=== PATIENT | female | born 1945 | race Caucasian/White ===

== ENCOUNTER 2021-10-14 09:11 | Day surgery (SDC) | payer MEDICARE ==
[~2021-10-14] VITALS: Ht 160 cm; Wt 81.1 kg
[~2021-10-14 09:11] MED LIST: BUPR150ER PO; GABA300 PO; LORA10ER PO; LOSARTAN-HCTZ1 EAC5 PO; METO25ER PO; Norco 10-325 T1 EACH PO; ROSU5 PO
[2021-10-14] MEDS ORDERED: CLEM1.34 (09:40)
== END 2021-10-14 10:37 | disposition home or self-care (01) ==
LOC: ORSCSDS 09:11
PROVIDERS: Ophthalmology
PROC: 08RJ3JZ Replacement of Right Lens with Synthetic Substitute, Percutaneous Approach (ICD-10-PCS; principal; 2021-10-14 10:00)
DX: H25.13 Age-related nuclear cataract, bilateral (principal); I10 Essential (primary) hypertension; F17.210 Nicotine dependence, cigarettes, uncomplicated; K21.9 Gastro-esophageal reflux disease without esophagitis; Z79.899 Other long term (current) drug therapy
CPT/HCPCS: J2001; J2250; J3010; J3301; J7040; V2632

== ENCOUNTER 2021-10-28 08:47 | Day surgery (SDC) | payer MEDICARE ==
[~2021-10-28] VITALS: Ht 160 cm; Wt 81.5 kg
[~2021-10-28 08:47] MED LIST changes: +CLEM1.34
[2021-10-28] MEDS ORDERED: IBU800 MG PO (09:03)
--- NOTE | 2021-10-28 09:10 | NUR ---
10/28/21 0910 Gilles Luis CALL LIGHT WITHIN REACH. TETRACAINE AT 0905 PLEDGETT AT 0908
== END 2021-10-28 10:35 | disposition home or self-care (01) ==
LOC: ORSCSDS 08:47
PROVIDERS: Ophthalmology
PROC: 08RK3JZ Replacement of Left Lens with Synthetic Substitute, Percutaneous Approach (ICD-10-PCS; principal; 2021-10-28 10:00)
DX: H25.12 Age-related nuclear cataract, left eye (principal); I10 Essential (primary) hypertension; E66.9 Obesity, unspecified; Z68.37 Body mass index [BMI] 37.0-37.9, adult; F17.210 Nicotine dependence, cigarettes, uncomplicated; Z79.899 Other long term (current) drug therapy
CPT/HCPCS: J2001; J2250; J3010; J3301; J7040; V2632

== ENCOUNTER → 2022-10-04 | Outpatient (CLI) | payer OTHER ==
[~2022-10-04] MED LIST changes: +IBU800 MG PO
[2022-10-04 18:57] LABS: Hematocrit 44.8 % (33.0-51.0); Hemoglobin 14.9 g/dL (11.5-16.0); Mean Corpuscular HGB 33.9 pg (26.0-34.0); Mean Corpuscular HGB Conc 33.3 g/dL (31.5-36.5); Mean Corpuscular Volume 102 fL (80-100); Mean Platelet Volume 10.4 fL (9.1-12.4); Platelet Count 221 K/mm3 (150-400); RDW Coefficient Variation 12.3 % (11.7-14.2); RDW Standard Deviation 46.9 fL (35.1-46.3); White Blood Cell Count 10.05 K/mm3 (4.00-11.30)
[2022-10-04 19:49] LABS: Albumin, Blood 3.5 g/dL (3.4-5.0); Bilirubin, Total 0.4 mg/dL (0.1-1.0); Bun/Creatinine Ratio 22.5 (12.0-20.0); Calcium, Blood 8.9 mg/dL (8.5-10.1); Creatinine, Blood 0.62 mg/dL (0.40-1.00); Globulin, Blood 3.6 g/dL (2.2-4.0); Potassium, Blood 4.2 mmol/L (3.5-5.5); Total Protein, Blood 7.1 g/dL (6.4-8.2)
[2022-10-04 19:56] LABS: BASOPHILS PERCENT MAN 1 % (0-2); EOSINOPHILS PERCENT MAN 5 % (0-6); LYMPHOCYTES % ATYPICAL MANUAL 1 % (0-0); LYMPHOCYTES ABSOLUTE MAN 2.71 K/mm3 (0.84-5.20); LYMPHOCYTES PERCENT MAN 26 % (21-46); MONOCYTES PERCENT MAN 5 % (4-13); NEUTROPHILS ABSOLUTE MAN 6.23 K/mm3 (1.96-9.15); SEG NEUTROPHILS PERCENT MAN 62 % (41-73); TOTAL CELLS COUNTED 100
== END | disposition home or self-care (01) ==
LOC: LAB SHORT 18:00 → LAB 18:00
PROVIDERS: Family Medicine
DX: J06.9 Acute upper respiratory infection, unspecified (principal); R05.9 Cough, unspecified; Z72.0 Tobacco use
CPT/HCPCS: 80053; 85025

== ENCOUNTER → 2023-02-18 | Outpatient (CLI) | payer OTHER ==
[2023-02-20 17:25] LABS: Adenovirus F 40/41 Not Detected (NOT DETECT); Astrovirus Not Detected (NOT DETECT); Campylobacter Sp Not Detected (NOT DETECT); Cryptosporidium Not Detected (NOT DETECT); Cyclospora Cayetanensis Not Detected (NOT DETECT); E. Coli O157 Not Detected (NOT DETECT); Entamoeba Histolytica Not Detected (NOT DETECT); Enteroaggregative E. coli-EAEC Not Detected (NOT DETECT); Enteropathogenic E. coli-EPEC Not Detected (NOT DETECT); Enterotoxigenic E. coli-ETEC Not Detected (NOT DETECT); Giardia Lamblia Not Detected (NOT DETECT); Norovirus GI/GII Detected (NOT DETECT); Plesiomonas Shigelloides Not Detected (NOT DETECT); Rotavirus A Not Detected (NOT DETECT); Salmonella Sp Not Detected (NOT DETECT); Sapovirus Not Detected (NOT DETECT); Shiga Toxin-prod E. coli-STEC Not Detected (NOT DETECT); Shigella/Enteroin E. coli-EIEC Not Detected (NOT DETECT); Vibrio Cholerae Not Detected (NOT DETECT); Vibrio Sp Not Detected (NOT DETECT); Yersinia Enterocolitica Not Detected (NOT DETECT)
== END ==
LOC: LAB SHORT 13:00 → LAB 13:00
PROVIDERS: Internal Medicine Gastroenterology
DX: R19.7 Diarrhea, unspecified (principal)
CPT/HCPCS: 87507

== ENCOUNTER → 2023-04-13 | Outpatient (CLI) | payer OTHER ==
[2023-04-13 19:23] LABS: Hemoglobin 15.9 g/dL (11.5-16.0); Mean Corpuscular HGB 33.4 pg (26.0-34.0); Mean Corpuscular HGB Conc 33.8 g/dL (31.5-36.5); Mean Corpuscular Volume 99 fL (80-100); Mean Platelet Volume 10.8 fL (9.1-12.4); Platelet Count 215 K/mm3 (150-400); RDW Coefficient Variation 12.8 % (11.7-14.2); RDW Standard Deviation 46.8 fL (35.1-46.3); Red Blood Cell Count 4.76 M/mm3 (3.80-5.20); White Blood Cell Count 10.51 K/mm3 (4.00-11.30)
[2023-04-13 20:54] LABS: BASOPHILS PERCENT MAN 0 % (0-2); EOSINOPHILS PERCENT MAN 1 % (0-6); LYMPHOCYTES % ATYPICAL MANUAL 1 % (0-0); LYMPHOCYTES ABSOLUTE MAN 3.99 K/mm3 (0.84-5.20); LYMPHOCYTES PERCENT MAN 37 % (21-46); MONOCYTES ABSOLUTE MAN 0.42 K/mm3 (0.16-1.47); MONOCYTES PERCENT MAN 4 % (4-13); NEUTROPHILS ABSOLUTE MAN 5.99 K/mm3 (1.96-9.15); SEG NEUTROPHILS PERCENT MAN 57 % (41-73); TOTAL CELLS COUNTED 100
== END ==
LOC: LAB SHORT 18:16 → LAB 18:16
PROVIDERS: Nurse Practitioner Family
DX: I10 Essential (primary) hypertension (principal)
CPT/HCPCS: 85025; 85060

== ENCOUNTER → 2023-07-31 | Outpatient (CLI) | payer OTHER ==
[2023-07-31 19:29] LABS: Hematocrit 43.8 % (33.0-51.0); Hemoglobin 14.5 g/dL (11.5-16.0); Mean Corpuscular HGB 34.1 pg (26.0-34.0); Mean Corpuscular HGB Conc 33.1 g/dL (31.5-36.5); Mean Corpuscular Volume 103 fL (80-100); Mean Platelet Volume 11.1 fL (9.1-12.4); Platelet Count 216 K/mm3 (150-400); RDW Coefficient Variation 12.6 % (11.7-14.2); RDW Standard Deviation 47.7 fL (35.1-46.3); Red Blood Cell Count 4.25 M/mm3 (3.80-5.20); White Blood Cell Count 11.16 K/mm3 (4.00-11.30)
[2023-07-31 20:18] LABS: CHOL/HDL RATIO 2.6; Cholesterol 201 mg/dL (50-200); HDL Cholesterol 77 mg/dL (>39); LDL/HDL RATIO 1.4; Low Density Lipoprotein Chol 105 mg/dL (0-110); Triglycerides 94 mg/dL (30-160); Very Low Density Lipoprot Chol 18 mg/dL (6-32)
[2023-07-31 20:30] LABS: BASOPHILS PERCENT MAN 0 % (0-2); EOSINOPHILS ABSOLUTE MAN 0.22 K/mm3 (0.00-0.68); EOSINOPHILS PERCENT MAN 2 % (0-6); LYMPHOCYTES ABSOLUTE MAN 4.24 K/mm3 (0.84-5.20); LYMPHOCYTES PERCENT MAN 38 % (21-46); MONOCYTES ABSOLUTE MAN 0.44 K/mm3 (0.16-1.47); MONOCYTES PERCENT MAN 4 % (4-13); NEUTROPHILS ABSOLUTE MAN 6.24 K/mm3 (1.96-9.15); SEG NEUTROPHILS PERCENT MAN 56 % (41-73); TOTAL CELLS COUNTED 100
[2023-08-02 09:11] LABS: A/G RATIO 2.6 (1.2-2.2); BILIRUBIN, TOTAL 0.3 mg/dL (0.0-1.2); CALCIUM, SERUM 9.2 mg/dL (8.7-10.3); CREATININE, SERUM 0.6 mg/dL (0.57-1.00); GLOBULIN, TOTAL 1.8 g/dL (1.5-4.5); PROTEIN, TOTAL, SERUM 6.4 g/dL (6.0-8.5)
== END | disposition home or self-care (01) ==
LOC: LAB 15:14 → LAB SHORT 15:14
PROVIDERS: Family Medicine
DX: E66.3 Overweight (principal); E78.5 Hyperlipidemia, unspecified; R26.9 Unspecified abnormalities of gait and mobility; R79.9 Abnormal finding of blood chemistry, unspecified
CPT/HCPCS: 80053; 80061; 84443; 85025; 85060

== ENCOUNTER 2023-12-27 07:01 | Inpatient (IN) | payer OTHER ==
[~2023-12-27] VITALS: Ht 160 cm; Wt 67.1 kg
[2023-12-27 09:01] LABS: Influenza A, PCR NEGATIVE (NEGATIVE); Influenza B, PCR NEGATIVE (NEGATIVE); Resp Syncytial Virus, PCR NEGATIVE (NEGATIVE); SARS-Cov-2 (COVID-19) PCR, MMC NEGATIVE (NEGATIVE)
[2023-12-27] MEDS ORDERED: Acetaminophen 500 MG Tab PO ONE (09:30)
[2023-12-27] MEDS ORDERED: Ipratropium/Albuterol SulF 2.5-0.5MG/3 ML Amp INH ONE (09:30)
[2023-12-27] MEDS ORDERED: Azithromycin 500 MG in NS 250 ML IV ONE (09:45)
[2023-12-27] MEDS ORDERED: MethylPREDNISolone Sod Succ 125 MG Vial IV ONE (09:45)
[2023-12-27] MEDS ORDERED: HYDROCODONE-AC1 EA19 PO (10:06)
[2023-12-27] MEDS ORDERED: HYDROCODONE-AC1 EAC7 PO (10:07)
[2023-12-27] MEDS ORDERED: Norvasc5 MG PO (10:08)
[2023-12-27] MEDS ORDERED: GABA300 PO ×2 (10:10→15:36)
[2023-12-27 11:05] LABS: BASOPHILS ABSOLUTE AUTO 0.04 K/mm3 (0.00-0.23); BASOPHILS PERCENT AUTO 0 % (0-2); EOSINOPHILS ABSOLUTE AUTO 0.03 K/mm3 (0.00-0.68); EOSINOPHILS PERCENT AUTO 0 % (0-6); Hematocrit 45.1 % (33.0-51.0); Hemoglobin 15.5 g/dL (11.5-16.0); IMMATURE GRAN ABSOLUTE AUTO 0.03 K/mm3 (0.00-0.10); IMMATURE GRAN PERCENT AUTO 0 % (0-1); LYMPHOCYTES PERCENT AUTO 28 % (21-46); MONOCYTES ABSOLUTE AUTO 0.53 K/mm3 (0.16-1.47); MONOCYTES PERCENT AUTO 6 % (4-13); Mean Corpuscular HGB 34.1 pg (26.0-34.0); Mean Corpuscular HGB Conc 34.4 g/dL (31.5-36.5); Mean Corpuscular Volume 99 fL (80-100); Mean Platelet Volume 9.6 fL (9.1-12.4); NEUTROPHILS ABSOLUTE AUTO 6.18 K/mm3 (1.96-9.15); NEUTROPHILS PERCENT AUTO 66 % (41-73); Platelet Count 168 K/mm3 (150-400); RDW Coefficient Variation 12.6 % (11.7-14.2); RDW Standard Deviation 46.6 fL (35.1-46.3); Red Blood Cell Count 4.54 M/mm3 (3.80-5.20); White Blood Cell Count 9.41 K/mm3 (4.00-11.30)
[2023-12-27 11:22] LABS: Albumin, Blood 3.6 g/dL (3.4-5.0); Albumin/Globulin Ratio 0.9 (0.8-1.8); Bilirubin, Total 0.5 mg/dL (0.1-1.0); Bun/Creatinine Ratio 32.5 (12.0-20.0); Calcium, Blood 8.7 mg/dL (8.5-10.1); Creatinine, Blood 0.52 mg/dL (0.40-1.00); Globulin, Blood 3.8 g/dL (2.2-4.0); Potassium, Blood 3.8 mmol/L (3.5-5.5); Total Protein, Blood 7.4 g/dL (6.4-8.2)
[2023-12-27] MEDS ORDERED: Acetaminophen 325 MG TABLET PO PRN (13:55)
[2023-12-27] MEDS ORDERED: Ipratropium/Albuterol SulF 2.5-0.5MG/3 ML Amp INH PRN (14:30)
[2023-12-27] MEDS ORDERED: AmLODIPine Besylate 5 MG Tab PO SCH (15:00)
[2023-12-27] MEDS ORDERED: Metoprolol Succinate 25 MG TABCR PO SCH (15:00)
[2023-12-27] MEDS ORDERED: Nicoderm Cq1 EAC1 TOP (15:38)
[2023-12-27 15:46] VITALS: BP 166/90
[2023-12-27] MEDS ORDERED: HYDROcodone 10-APAP 325 TAB PO ONE (16:20)
[2023-12-27 19:20] VITALS: BP 169/82
[2023-12-27] MEDS ORDERED: HYDROcodone 10-APAP 325 TAB PO SCH (21:00)
[2023-12-27] MEDS ORDERED: Gabapentin 300 MG Cap PO SCH (21:00)
[2023-12-27] MEDS ORDERED: MethylPREDNISolone Sod Succ 40 MG VIAL IV SCH (21:00)
[2023-12-28 03:36] VITALS: BP 149/78
[2023-12-28] MEDS ORDERED: Guaifenesin/Dextromethorphan Syrup 5 ML UDC PO PRN (04:15)
--- NOTE | 2023-12-28 04:16 | NUR ---
SHIFT SUMMARY PT. UP IN BED, A FEMALE VISITOR BY THE BEDSIDE WHO KNOWS PT'S HEALTH HISTORY. PT. SITTING UPRIGHT,HOB ELEVATED AND ON O2 VIA NC@3L. LS WHEEZING ON UL'S PER AUSCULTATION, AND DIMINSHED LL'S. MOIST COUGH, UNPRODUCTIVE. PT.C/O HOSPITAL ER AND MEDICAL FLOOR CARE FOR HER: C/O AWAITING TO GET TYLENOL FOR SIX HOURS AT THE ER, AND THEN FROM [phone]@ MEDICAL FLOOR PER PT'S REPORT, TO THIS NURSE AND RN TAN. PT'S AFFECT IS ANGRY AND IRRITABLE, PT. IS DEMANDING 10/325MG NORCO, AND VISITOR CHECKING THE PILL PRINT TO MAKE SURE IT IS A 10MG INSTEAD OF 5MG TAB. PT'S DEMEANOR IS DEMANDING, THIS WIRTER AND RN IN THE ROOM TO PASS HS MEDS AND ANALGESICS IN ORDER TO DEFUSE/WITNESS THE SITUATION. PER PT STATEMENT"I WILL NEVER COME HERE AGAIN IF I DON'T GET THE TYLENOL NOW!!". THE FEMALE VISITOR AGREES WITH THE PT, AND ADDS INFO TO THEIR COMPLAINTS. QUICK SHIFT ASSESSMENT COMPLETED BY THIS NURSE, WHILE LESTER REAGAN ADMINISTERING IV MED ORDERED AT 2100. PT.C/O 8/10WORST H/A @FRONTAL LOBE, (SEE EMAR FOR MORE INFO ABOUT PRN MEDS). NEW ORDER FOR COUGH/ PER PT REQUEST: ROBITUSSIN DM PO 10ML Q6PRN. PT. LISTENING AND COMPLAINING ABOUT THE WAY THIS NURSE AND A STAFF MEMBER COMMUNICATE VIA [employer]. THIS NURSE EXPLAINED THAT THERE WAS NO INFO ABOUT THE PATIENT, NOR A ROOM NUMBER, NO IDENTIFIERS HEARD OVER THE [employer] WHILE IN THE PT.S ROOM. PT. REPLIES" I WAS A PSYCHOLOGY STUDENT ONCE SO I KNOW." NO ACUTE EVENTS/DISTRESS NOTED OR REPORTED DURING THIS SHIFT. BED AT THE LOWEST POSITION, CALL LIGHT IN REACH. WILL HANDOFF TO THE INCOMING SHIFT NURSE.
[2023-12-28 05:10] LABS: BASOPHILS ABSOLUTE AUTO 0.02 K/mm3 (0.00-0.23); BASOPHILS PERCENT AUTO 0 % (0-2); EOSINOPHILS PERCENT AUTO 0 % (0-6); Hematocrit 45.3 % (33.0-51.0); Hemoglobin 15.2 g/dL (11.5-16.0); IMMATURE GRAN ABSOLUTE AUTO 0.04 K/mm3 (0.00-0.10); IMMATURE GRAN PERCENT AUTO 0 % (0-1); LYMPHOCYTES ABSOLUTE AUTO 3.29 K/mm3 (0.84-5.20); LYMPHOCYTES PERCENT AUTO 34 % (21-46); MONOCYTES ABSOLUTE AUTO 0.13 K/mm3 (0.16-1.47); MONOCYTES PERCENT AUTO 1 % (4-13); Mean Corpuscular HGB 33.5 pg (26.0-34.0); Mean Corpuscular HGB Conc 33.6 g/dL (31.5-36.5); Mean Corpuscular Volume 100 fL (80-100); Mean Platelet Volume 9.8 fL (9.1-12.4); NEUTROPHILS ABSOLUTE AUTO 6.23 K/mm3 (1.96-9.15); NEUTROPHILS PERCENT AUTO 64 % (41-73); Platelet Count 178 K/mm3 (150-400); RDW Coefficient Variation 12.1 % (11.7-14.2); RDW Standard Deviation 45.1 fL (35.1-46.3); Red Blood Cell Count 4.54 M/mm3 (3.80-5.20); White Blood Cell Count 9.71 K/mm3 (4.00-11.30)
[2023-12-28 05:39] LABS: Albumin, Blood 3.5 g/dL (3.4-5.0); Albumin/Globulin Ratio 0.9 (0.8-1.8); Bilirubin, Total 0.4 mg/dL (0.1-1.0); Bun/Creatinine Ratio 34.4 (12.0-20.0); Calcium, Blood 8.8 mg/dL (8.5-10.1); Creatinine, Blood 0.49 mg/dL (0.40-1.00); Globulin, Blood 3.8 g/dL (2.2-4.0); Potassium, Blood 4.3 mmol/L (3.5-5.5); Total Protein, Blood 7.3 g/dL (6.4-8.2)
[2023-12-28 07:14] VITALS: BP 170/70
[2023-12-28] MEDS ORDERED: Ipratropium/Albuterol SulF 2.5-0.5MG/3 ML Amp INH SCH ×3 (07:40→15:00)
[2023-12-28] MEDS ORDERED: Nicotine 14 MG PATCH TOP SCH (09:00)
[2023-12-28] MEDS ORDERED: Losartan Potassium 50 MG Tab PO SCH (09:00)
[2023-12-28] MEDS ORDERED: HydroCHLOROthiazide 25 mg Tab PO SCH (09:00)
[2023-12-28] MEDS ORDERED: HydrALAZINE HCl 20 MG / ML 1ML Vial IV PRN (09:00)
[2023-12-28] MEDS ORDERED: Gabapentin 300 MG Cap PO SCH (09:00)
[2023-12-28] MEDS ORDERED: Enoxaparin 40 MG/0.4 ML SYR SC SCH (09:00)
[2023-12-28] MEDS ORDERED: Azithromycin 250 MG Tab PO SCH (09:00)
[2023-12-28 15:10] VITALS: BP 137/58
[2023-12-28] MEDS ORDERED: MethylPREDNISolone Sod Succ 40 MG VIAL IV SCH (16:00)
--- NOTE | 2023-12-28 18:25 | NUR ---
REPORT RECEIVED VERIFED PT DOING BETTER TODAY BUT EXPRESSED WANTING TO STAY ANOTHER NIGHT, O2 IS STILL NEEDED, O2 EVAL SEEMED SUCCESSFUL BUT PT WHILE AMBULATING IS AT 91-93 ON ROOM AIR BUT ONCE SHE IS IN BED O2 DROPS TO THE MID 80S, I INFORMED THE MD AND ADDITIONAL TREATMENTS ORDERED. PT COUGH IS DEEP AND UNPRODUCTIVE. COUGH MEDS GIVEN
[2023-12-28 20:01] VITALS: BP 140/56
[2023-12-29 03:55] VITALS: BP 104/65
[2023-12-29 06:17] LABS: Bun/Creatinine Ratio 43.6 (12.0-20.0); Calcium, Blood 8.9 mg/dL (8.5-10.1); Creatinine, Blood 0.6 mg/dL (0.40-1.00); Potassium, Blood 4.2 mmol/L (3.5-5.5)
--- NOTE | 2023-12-29 07:14 | NUR ---
Patient alert and oriented x3, VSS, tolerating 2L via nasal cannula. Patient inconsistently compliant with care, impulsively ambulating to room and removing oxygen at times, refusing education.
[2023-12-29 07:45] VITALS: BP 166/70
[2023-12-29] MEDS ORDERED: Q-Tussin100 MG/5 M PO (11:55)
[2023-12-29] MEDS ORDERED: PRED20 PO (11:55)
[2023-12-29] MEDS ORDERED: ALBU90OI INH (11:56)
[2023-12-29] MEDS ORDERED: FLUTICASONE-SA1 EAC1 INH (11:56)
[2023-12-29] MEDS ORDERED: HYDROcodone 5-APAP 325 TAB PO ONE (12:35)
--- NOTE | 2023-12-29 13:52 | NUR ---
PT DISCHARGE REVIEWED WITH PT AND S/O PER HER VERBAL AUTH, IV PULLED BY AIDE. NO TELE. PT VERVALIZED UNDERSTANDING MEDS AND INSTRUCT. PT DRESSED SELF. WILL BE WHEELED TODOOR BY AIDE.
== END 2023-12-29 14:14 | disposition home or self-care (01) | DRG 189 ==
LOC: ER 07:01 → MEDS 07:02 → ENPENDDIS 12-29 11:16 → MEDS 12-29 14:14
PROVIDERS: Family Medicine Adult Medicine; Physician Assistant; ADMIT Internal Medicine
DX: J96.01 Acute respiratory failure with hypoxia (principal); I10 Essential (primary) hypertension; F17.200 Nicotine dependence, unspecified, uncomplicated; M19.90 Unspecified osteoarthritis, unspecified site; G83.24 Monoplegia of upper limb affecting left nondominant side; K52.832 Lymphocytic colitis; G14 Postpolio syndrome; E78.00 Pure hypercholesterolemia, unspecified; H26.9 Unspecified cataract; Z88.7 Allergy status to serum and vaccine; Z79.1 Long term (current) use of non-steroidal anti-inflammatories (NSAID); Z79.891 Long term (current) use of opiate analgesic; Z85.42 Personal history of malignant neoplasm of other parts of uterus
CPT/HCPCS: 0241U; 36415; 71046; 80048; 80053; 85025; 93005; 93010; 94640; 94664; 94761; 94762; A9270; J0456; J1650; J2919; J7050

== ENCOUNTER → 2024-01-24 | Outpatient (CLI) | payer OTHER ==
[~2024-01-24] MED LIST changes: +ALBU90OI INH; +FLUTICASONE-SA1 EAC1 INH; +HYDROCODONE-AC1 EA19 PO; +HYDROCODONE-AC1 EAC7 PO; +Nicoderm Cq1 EAC1 TOP; +Norvasc5 MG PO; +PRED20 PO; +Q-Tussin100 MG/5 M PO
== END ==
LOC: LAB 18:36 → LAB SHORT 18:36
DX: R30.0 Dysuria (principal)
CPT/HCPCS: 87077; 87086; 87186

== ENCOUNTER 2024-02-29 16:39 | Emergency (ER) | payer OTHER ==
[~2024-02-29] VITALS: Ht 162.6 cm; Wt 71.2 kg
[2024-02-29 16:47] VITALS: BP 124/89
[2024-02-29] MEDS ORDERED: CEPH500 PO ×2 (16:55→16:56)
[2024-02-29] MEDS ORDERED: ONDA4ODT MM (16:55)
== END 2024-02-29 16:56 | disposition home or self-care (01) ==
LOC: ER 16:39
DX: L03.115 Cellulitis of right lower limb (principal); I10 Essential (primary) hypertension; E78.00 Pure hypercholesterolemia, unspecified; Z79.52 Long term (current) use of systemic steroids; Z79.51 Long term (current) use of inhaled steroids; Z79.899 Other long term (current) drug therapy; Z88.7 Allergy status to serum and vaccine
CPT/HCPCS: 99283

== ENCOUNTER 2024-05-31 08:50 | Day surgery (SDC) | payer OTHER ==
[2024-05-31] VITALS (14 sets, daily range): BP systolic 120–149; BP diastolic 56–78
[~2024-05-31] VITALS: Ht 160 cm; Wt 71.0 kg
[~2024-05-31 08:50] MED LIST changes: +ALEVAZOL56.7 G1 TOP; +CENTRUM SILVER1 EAC2 PO; +CEPH500 PO; +MELA3; +ONDA4ODT MM; +VITAMIN A; +Vitamin B Comple1 EA PO
[2024-05-31] MEDS ORDERED: Lactated Ringer's 1,000 ML IV SCH (09:20)
[2024-05-31] MEDS ORDERED: Indocyanine Green 25 MG Vial IV SCH (09:20)
--- NOTE | 2024-05-31 10:37 | NUR ---
Ambulatory in Day Surgery ABLE TO STAND ON SCALE INDEPENDENTLY. History, Chart, Medications and Allergies reviewed before start of procedure. 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 PT NEEDS HELP WITH CHANGING DUE TO LEFT ARM PARALYSIS AND RIGHT SHOULDER PAIN. BELONGINGS PLACED UNDER GURN IN PT BELONGING BAG.
[2024-05-31] MEDS ORDERED: Ondansetron HCl 2 MG / ML 2ML Vial ONE ×2 (10:44→15:01)
[2024-05-31] MEDS ORDERED: Rocuronium Bromide 10 MG/ML 5ML Injection IV ONE (10:44)
[2024-05-31] MEDS ORDERED: Sugammadex Sodium 200 MG/2ML SDV (100 MG/ML) ONE (10:44)
[2024-05-31] MEDS ORDERED: propofoL 20 ML IV ONE (10:44)
[2024-05-31] MEDS ORDERED: Dexamethasone Sod Phos 10 MG/ML 1ML VIAL ONE (10:44)
[2024-05-31] MEDS ORDERED: FentaNYL Citrate 50 MCG/ML 2 ML Injection ONE ×2 (10:44→14:42)
[2024-05-31] MEDS ORDERED: Bupivacaine 0.5% HCl 5 MG/ML 30MLVIAL ONE (11:44)
[2024-05-31] MEDS ORDERED: ePHEDrine Sulfate 50 MG/ML 1ML Injection ONE (12:21)
--- NOTE | 2024-05-31 13:01 | NUR ---
05/31/24 1301 Jayda Woody NO INTRAOPERATIVE ANTIBIOTICS ORDERED.
[2024-05-31] MEDS ORDERED: HYDROcodone 5-APAP 325 TAB PO PRN (14:45)
[2024-05-31] MEDS ORDERED: Metoclopramide HCl 5MG / ML 2ML Vial ONE (15:01)
--- NOTE | 2024-05-31 17:30 | NUR ---
Discharge instructions reviewed with patient. Patient verbalizes understanding. Copy given to patient to take home. BELONGINGS INCLUDING CELL PHONE RETURNED TO PT. Discharged via wheelchair to private car for ride home.
== END 2024-05-31 17:31 | disposition home or self-care (01) ==
LOC: ORSCMMR 08:50 → ORD 11:00 → ORSCMMR 17:31
PROVIDERS: Surgery
PROC: 0FT44ZZ Resection of Gallbladder, Percutaneous Endoscopic Approach (ICD-10-PCS; principal; 2024-05-31 11:00)
PROC: BF532Z0 Other Imaging of Gallbladder and Bile Ducts using Fluorescing Agent, Intraoperative (ICD-10-PCS; principal; 2024-05-31 11:00)
DX: K80.40 Calculus of bile duct with cholecystitis, unspecified, without obstruction (principal); R10.11 Right upper quadrant pain; I12.9 Hypertensive chronic kidney disease with stage 1 through stage 4 chronic kidney disease, or unspecified chronic kidney disease; N18.30 Chronic kidney disease, stage 3 unspecified; E78.5 Hyperlipidemia, unspecified; J44.9 Chronic obstructive pulmonary disease, unspecified; F17.210 Nicotine dependence, cigarettes, uncomplicated; Z79.899 Other long term (current) drug therapy
CPT/HCPCS: 88304; A9270; J1100; J2405; J2704; J2765; J3010; J7120

== ENCOUNTER 2024-06-05 14:53 | Inpatient (IN) | payer OTHER ==
[~2024-06-05] VITALS: Ht 160 cm; Wt 64.4 kg
[2024-06-05 15:54] LABS: BASOPHILS ABSOLUTE AUTO 0.05 K/mm3 (0.00-0.23); BASOPHILS PERCENT AUTO 0 % (0-2); EOSINOPHILS ABSOLUTE AUTO 0.17 K/mm3 (0.00-0.68); EOSINOPHILS PERCENT AUTO 1 % (0-6); Hematocrit 44.1 % (33.0-51.0); Hemoglobin 14.7 g/dL (11.5-16.0); IMMATURE GRAN ABSOLUTE AUTO 0.06 K/mm3 (0.00-0.10); IMMATURE GRAN PERCENT AUTO 0 % (0-1); LYMPHOCYTES ABSOLUTE AUTO 4.04 K/mm3 (0.84-5.20); LYMPHOCYTES PERCENT AUTO 28 % (21-46); MONOCYTES ABSOLUTE AUTO 0.64 K/mm3 (0.16-1.47); MONOCYTES PERCENT AUTO 5 % (4-13); Mean Corpuscular HGB 33.4 pg (26.0-34.0); Mean Corpuscular HGB Conc 33.3 g/dL (31.5-36.5); Mean Corpuscular Volume 100 fL (80-100); Mean Platelet Volume 9.8 fL (9.1-12.4); NEUTROPHILS ABSOLUTE AUTO 9.37 K/mm3 (1.96-9.15); NEUTROPHILS PERCENT AUTO 65 % (41-73); Platelet Count 210 K/mm3 (150-400); RDW Coefficient Variation 12.7 % (11.7-14.2); RDW Standard Deviation 47.7 fL (35.1-46.3); White Blood Cell Count 14.33 K/mm3 (4.00-11.30)
[2024-06-05] MEDS ORDERED: HYDROmorphone HCl/Pf 1MG SYR IV ONE ×2 (16:15→20:35)
[2024-06-05] MEDS ORDERED: Ondansetron HCl 2 MG / ML 2ML Vial IV ONE (16:15)
[2024-06-05 16:17] LABS: Albumin, Blood 3.3 g/dL (3.4-5.0); Albumin/Globulin Ratio 0.9 (0.8-1.8); Bilirubin, Total 1.2 mg/dL (0.1-1.0); Bun/Creatinine Ratio 28.7 (12.0-20.0); Calcium, Blood 9.1 mg/dL (8.5-10.1); Creatinine, Blood 0.52 mg/dL (0.40-1.00); Globulin, Blood 3.7 g/dL (2.2-4.0); Potassium, Blood 4.6 mmol/L (3.5-5.5)
[2024-06-05] MEDS ORDERED: Polyethylene Glycol 3350 17 gm PO ONE (19:25)
[2024-06-05] MEDS ORDERED: Ampicillin Sod/Sulbactam Sod 3 GM in NS 100 ML IV ONE (20:50)
[2024-06-05] MEDS ORDERED: Ondansetron HCl 2 MG / ML 2ML Vial IV PRN (22:10)
[2024-06-05] MEDS ORDERED: FLU VACC TS2024-25(6MOS UP)/PF 45 MCG/0.5 ML SYRINGE IM ONE (22:10)
[2024-06-05] MEDS ORDERED: NS 1,000 ML IV SCH (22:10)
[2024-06-05] MEDS ORDERED: HYDROmorphone HCl/Pf 1MG SYR IV PRN (22:15)
[2024-06-05] MEDS ORDERED: Albuterol HFA200 ACT/6.7 GM INH INH PRN (22:25)
[2024-06-05] MEDS ORDERED: Piperacillin/Tazobactam Sod 4.5 GM in NS 100 ML IV SCH (22:30)
[2024-06-05] MEDS ORDERED: LOSA50 PO (22:48)
[2024-06-05] MEDS ORDERED: Docusate Sodium 100 MG Cap PO SCH (23:00)
[2024-06-06 00:03] VITALS: BP 124/76
[2024-06-06] MEDS ORDERED: HYDROmorphone HCl/Pf 1MG SYR IV PRN (03:20)
[2024-06-06 04:01] VITALS: BP 110/51
[2024-06-06 04:02] VITALS: BP 121/61
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
[2024-06-06 05:56] LABS: BASOPHILS ABSOLUTE AUTO 0.04 K/mm3 (0.00-0.23); BASOPHILS PERCENT AUTO 0 % (0-2); EOSINOPHILS ABSOLUTE AUTO 0.15 K/mm3 (0.00-0.68); EOSINOPHILS PERCENT AUTO 1 % (0-6); Hematocrit 42.6 % (33.0-51.0); Hemoglobin 14.4 g/dL (11.5-16.0); IMMATURE GRAN ABSOLUTE AUTO 0.04 K/mm3 (0.00-0.10); IMMATURE GRAN PERCENT AUTO 0 % (0-1); LYMPHOCYTES ABSOLUTE AUTO 4.65 K/mm3 (0.84-5.20); LYMPHOCYTES PERCENT AUTO 37 % (21-46); MONOCYTES ABSOLUTE AUTO 0.77 K/mm3 (0.16-1.47); MONOCYTES PERCENT AUTO 6 % (4-13); Mean Corpuscular HGB 33.6 pg (26.0-34.0); Mean Corpuscular HGB Conc 33.8 g/dL (31.5-36.5); Mean Corpuscular Volume 99 fL (80-100); Mean Platelet Volume 9.9 fL (9.1-12.4); NEUTROPHILS ABSOLUTE AUTO 6.95 K/mm3 (1.96-9.15); NEUTROPHILS PERCENT AUTO 55 % (41-73); Platelet Count 208 K/mm3 (150-400); RDW Coefficient Variation 12.7 % (11.7-14.2); RDW Standard Deviation 46.5 fL (35.1-46.3); Red Blood Cell Count 4.29 M/mm3 (3.80-5.20)
[2024-06-06 06:19] LABS: Albumin, Blood 3.1 g/dL (3.4-5.0); Albumin/Globulin Ratio 0.9 (0.8-1.8); Bilirubin, Total 1.2 mg/dL (0.1-1.0); Creatinine, Blood 0.69 mg/dL (0.40-1.00); Globulin, Blood 3.5 g/dL (2.2-4.0); Potassium, Blood 3.9 mmol/L (3.5-5.5); Total Protein, Blood 6.6 g/dL (6.4-8.2)
[2024-06-06 07:25] VITALS: BP 125/57
[2024-06-06] MEDS ORDERED: Gabapentin 300 MG Cap PO SCH (09:00)
[2024-06-06] MEDS ORDERED: Metoprolol Succinate 25 MG TABCR PO SCH (09:00)
--- NOTE | 2024-06-06 09:10 | NUR ---
DR RODRIGUEZ TO CHARGE STATION. OKAY FOR PT TO HAVE CLEAR LIQUIDS SHE IS CURRENTLY REQUESTEING A CUP OF HOT WATER. ORDER PLACED AND WATER GIVEN PER DR. RODRIGUEZ.
[2024-06-06] MEDS ORDERED: Metoclopramide HCl 5MG / ML 2ML Vial IV PRN (10:10)
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
[2024-06-06] MEDS ORDERED: Prochlorperazine Edisylate 10 mg Vial IM PRN (11:00)
[2024-06-06] MEDS ORDERED: Prochlorperazine Edisylate 10 mg Vial IV PRN (11:20)
[2024-06-06] MEDS ORDERED: Norco 10-325 T1 EACH PO (15:14)
[2024-06-06] MEDS ORDERED: ONDA4ODT MM (15:15)
[2024-06-06] MEDS ORDERED: GABA300 PO (15:16)
[2024-06-06 15:36] VITALS: BP 129/61
--- NOTE | 2024-06-06 17:36 | NUR ---
PATIENT ALERT AND ORIENTED X 4, VSS, RA. PT COMPLAINED OF ABDOMINAL AND SHOULDER PAIN, CONTROLLED WITH DILAUDED. PT NAUSEOUS AND VOMITED CLEAR YELLOW EMISIS, ZOFRAN AND REGLAN INEFFECTIVE, COMPAZINE EFFECTIVE. NS RUNNING AT 150, DIET ADVANCED TO CLEAR LIQUID DIET PER DR. RODRIGUEZ. PT STILL WAITING FOR BED AT ANOTHER FACILITY THAT CAN DO AN ERCP. PT CALLS APPROPRIATLY, EDUCATED ON ESBL AND CONTACT PRECAUTIONS.
[2024-06-06 20:56] VITALS: BP 119/54
[2024-06-07 02:13] VITALS: BP 130/70
--- NOTE | 2024-06-07 05:52 | NUR ---
SHIFT SUMMARY PATIENT IS ALERT AND ORIENTED. PATIENT HAS HAD NO ACUTE EVENTS THIS SHIFT. VITAL SIGNS REVIEWED. PATIENT HAS REPORTED PAIN AND NAUSEA THIS SHIFT AND MEDICATED PER EMAR. PATIENT HAS HAD NO SOB OR VOMITTING THIS SHIFT. BED IN LOCKED AND LOWEST POSITION. CALL LIGHT IN PLACE.
[2024-06-07 07:46] VITALS: BP 145/75
[2024-06-07 07:51] LABS: Albumin, Blood 2.7 g/dL (3.4-5.0); Albumin/Globulin Ratio 0.8 (0.8-1.8); Bilirubin, Direct 0.4 mg/dL (0.0-0.3); Bilirubin, Indirect 0.6 mg/dL (0.1-0.7); Globulin, Blood 3.2 g/dL (2.2-4.0); Total Protein, Blood 5.9 g/dL (6.4-8.2)
[2024-06-07 15:38] VITALS: BP 122/87
[2024-06-07] MEDS ORDERED: DOCU100 PO (16:34)
[2024-06-07] MEDS ORDERED: SUPER B-50 COM1 EACH PO (16:34)
[2024-06-07] MEDS ORDERED: PIPERACIL-TAZO4.5 G1 IV (16:35)
[2024-06-07 17:07] VITALS: BP 122/87
[2024-06-07] MEDS ORDERED: HYDROcodone 10-APAP 325 TAB PO ONE (19:00)
--- NOTE | 2024-06-07 19:14 | NUR ---
PT ALERT AND ORIENTED X4, VSS, RA, INDEPENDENT IN ROOM, PLEASANT. ZOSYN CONTINUED, PAIN CONTROLLED WITH PRN DILAUDED, NAUSEA CONTROLLED WITH PRN ZOFRAN. PT STATES THAT ABDOMINAL PAIN IS IMPROVING, BUT ERCP STILL NECESSARY. BED AVAILABLE TONIGHT IN [place] FOR PROCEDURE IN THE MORNING. [facility] TRANSPORT IS BEING ARRANGED FOR TONIGHT. PT RESTING COMFORTABLE IN ROOM AWAITING TRANSPORT. CALL LIGHT IN REACH, BED IN LOW POSITION.
[2024-06-07 19:48] VITALS: BP 145/68
[2024-06-07 20:30] VITALS: BP 122/87
== END 2024-06-07 21:35 | disposition short-term general hospital (02) | DRG 446 ==
LOC: ER 14:53 → MEDS 22:06
PROVIDERS: Nurse Practitioner Acute Care; Physician Assistant; Surgery; ADMIT Student in an Organized Health Care Education/Training Program
DX: K80.32 Calculus of bile duct with acute cholangitis without obstruction (principal); G14 Postpolio syndrome; K52.832 Lymphocytic colitis; J44.9 Chronic obstructive pulmonary disease, unspecified; H26.9 Unspecified cataract; M19.90 Unspecified osteoarthritis, unspecified site; F17.210 Nicotine dependence, cigarettes, uncomplicated; I12.9 Hypertensive chronic kidney disease with stage 1 through stage 4 chronic kidney disease, or unspecified chronic kidney disease; N18.30 Chronic kidney disease, stage 3 unspecified; E78.00 Pure hypercholesterolemia, unspecified; F10.21 Alcohol dependence, in remission; Z90.710 Acquired absence of both cervix and uterus; Z98.890 Other specified postprocedural states; Z98.51 Tubal ligation status; Z90.49 Acquired absence of other specified parts of digestive tract; Z88.7 Allergy status to serum and vaccine; Z79.891 Long term (current) use of opiate analgesic; Z79.899 Other long term (current) drug therapy
CPT/HCPCS: 36415; 74177; 74181; 80053; 80076; 83690; 83735; 85025; 94760; 96365-59; 96375; 96376; 99284-25; A9270; J0295; J0780; J1171; J2405; J2543; J2765; J7030; Q9967

== ENCOUNTER → 2024-12-31 | Outpatient (CLI) | payer OTHER ==
[~2024-12-31] MED LIST changes: +AMOX-CLAV 875-1 EAC5 PO; +ANORO ELLIPTA1 EAC1 INH; +AZIT500 PO; +BENZ100A PO; +DOCU100 PO; +ESTRADIOL42.5 GM TOP; +GUAI600T33 PO; +LOSARTAN POTAS100 M1 PO; +MELATONIN5 M1 PO; +MERIBIN5 MG PO; +NICO21TP TD; +PIPERACIL-TAZO4.5 G1 IV; +SUPER B-50 COM1 EACH PO
== END ==
LOC: LAB 16:16 → LAB SHORT 16:16
DX: R30.0 Dysuria (principal)
CPT/HCPCS: 87077; 87086; 87186

== ENCOUNTER → 2025-01-21 | Outpatient (CLI) | payer OTHER ==
[~2025-01-21] MED LIST changes: +BRUKINSA80 MG; +GABA800; +POTASSIUM
== END | disposition home or self-care (01) ==
LOC: LAB SHORT 19:07 → LAB 19:07
DX: R39.9 Unspecified symptoms and signs involving the genitourinary system (principal)
CPT/HCPCS: 87077; 87086; 87186

== ENCOUNTER 2025-01-22 06:46 | Day surgery (SDC) | payer OTHER ==
[~2025-01-22] VITALS: Ht 165.1 cm; Wt 68.4 kg
[~2025-01-22 06:46] MED LIST changes: -BRUKINSA80 MG; -GABA800; -POTASSIUM
[2025-01-22] MEDS ORDERED: BRUKINSA80 MG (07:22)
[2025-01-22] MEDS ORDERED: GABA800 (07:23)
[2025-01-22] MEDS ORDERED: POTASSIUM (07:25)
[2025-01-22 09:22] VITALS: BP 146/57
== END 2025-01-22 09:08 | disposition home or self-care (01) ==
LOC: ORSCSDS 06:46
PROVIDERS: Internal Medicine Gastroenterology
PROC: 0DBE8ZX Excision of Large Intestine, Via Natural or Artificial Opening Endoscopic, Diagnostic (ICD-10-PCS; principal; 2025-01-22 08:00)
DX: K52.832 Lymphocytic colitis (principal); K57.30 Diverticulosis of large intestine without perforation or abscess without bleeding; E78.00 Pure hypercholesterolemia, unspecified; E78.5 Hyperlipidemia, unspecified; I12.9 Hypertensive chronic kidney disease with stage 1 through stage 4 chronic kidney disease, or unspecified chronic kidney disease; N18.30 Chronic kidney disease, stage 3 unspecified; J44.9 Chronic obstructive pulmonary disease, unspecified; Z79.899 Other long term (current) drug therapy; F17.210 Nicotine dependence, cigarettes, uncomplicated
CPT/HCPCS: 88305; J2003; J2704; J7120

== ENCOUNTER → 2025-03-11 | Outpatient (CLI) | payer OTHER ==
[~2025-03-11] MED LIST changes: +BRUKINSA80 MG; +GABA800; +POTASSIUM
== END ==
LOC: LAB 10:00 → LAB SHORT 10:00
DX: R30.0 Dysuria (principal)
CPT/HCPCS: 87086

== ENCOUNTER → 2025-06-11 | Outpatient (CLI) | payer OTHER ==
[2025-06-13 02:08] LABS: COTININE, URN, SCREEN Negative
== END ==
LOC: LAB 13:46 → LAB SHORT 13:46 → EDSTATUS 06-09 15:50 → LAB FUT 06-09 15:50
PROVIDERS: Orthopaedic Surgery
DX: Z87.891 Personal history of nicotine dependence (principal)